=== PATIENT | female | born 1965 | race Two or more races ===

== ENCOUNTER 2020-11-16 05:32 | Day surgery (SDC) | payer OTHER ==
[~2020-11-16 05:32] MED LIST: SYNTHROID125 MCG
[2020-11-16] MEDS ORDERED: IBU400 MG PO (08:46)
== END 2020-11-16 10:10 | disposition home or self-care (01) ==
LOC: CIR.AMB 05:32
PROVIDERS: ATTEND Obstetrics & Gynecology Gynecology
DX: N84.0 Polyp of corpus uteri (principal); Z20.822 Contact with and (suspected) exposure to COVID-19

== ENCOUNTER 2022-10-17 05:50 | Day surgery (SDC) | payer OTHER ==
[~2022-10-17] VITALS: Ht 238.8 cm; Wt 75.3 kg
[~2022-10-17 05:50] MED LIST changes: +IBU400 MG PO
[2022-10-17] MEDS ORDERED: IBU600 MG PO (09:12)
== END 2022-10-17 12:15 | disposition home or self-care (01) ==
LOC: CIR.AMB 05:50
PROVIDERS: ATTEND Obstetrics & Gynecology Gynecology
DX: N84.0 Polyp of corpus uteri (principal); N93.8 Other specified abnormal uterine and vaginal bleeding; E03.9 Hypothyroidism, unspecified; Z20.822 Contact with and (suspected) exposure to COVID-19

== ENCOUNTER 2024-12-30 05:10 | Day surgery (SDC) | payer OTHER ==
[2024-12-23 10:16] VITALS: BP 136/86
[~2024-12-30] VITALS: Ht 157.5 cm; Wt 75.3 kg
[~2024-12-30 05:10] MED LIST changes: +IBU600 MG PO
[2024-12-30] MEDS ORDERED: POVIDONE-IODINE 118 ML BOTT TOP ONE (08:16)
[2024-12-30] MEDS ORDERED: IBU600 MG PO (09:17)
[2024-12-30] MEDS ORDERED: MORPHINE SULFATE 4 MG/ML VIAL IV ONE ×2 (10:25→11:00)
== END 2024-12-30 12:15 | disposition home or self-care (01) ==
LOC: CIR.AMB 05:10
PROVIDERS: ATTEND Obstetrics & Gynecology Gynecology
DX: N84.1 Polyp of cervix uteri (principal); N95.0 Postmenopausal bleeding; E03.8 Other specified hypothyroidism